=== PATIENT | female | born 1975 | race African-American/Black ===

== ENCOUNTER 2020-10-10 02:04 | Emergency (ER) | payer MEDICAID, OTHER ==
[~2020-10-10] VITALS: Ht 167.6 cm; Wt 79.0 kg
[2020-10-10] MEDS ORDERED: HALOPERIDOL LACTATE 5MG/ML VIAL IM STA (02:33)
[2020-10-10] MEDS ORDERED: LORAZEPAM 2MG/ML CPJ IV ONE (02:45)
[2020-10-10 06:15] VITALS: BP 109/64
[2020-10-10 06:39] LABS: BASOPHILS % 0.4 % (0.0-2.0); HEMATOCRIT. 37.9 % (36.0-48.0); HEMOGLOBIN. 12.4 g/dL (12.0-16.0); MEAN CORPUSCULAR VOLUME 88.6 fL (81.0-99.0); MEAN PLATELET VOLUME 8.5 fl (7.4-10.4); MONOCYTES % 8.4 % (2.0-8.0); NEUTROPHILS % 70.2 % (40.0-76.0); PLATELET 230 x1000/uL (130-400); RED BLOOD CELL COUNT 4.28 mill/uL (4.2-5.4); RED CELL DISTRIBUTION WIDTH 15.2 % (11.6-14.6)
[2020-10-10 06:46] LABS: CHLORIDE 108 mEq/L (98-107)
[2020-10-10 06:49] LABS: ETHANOL BLOOD < 10 mg/dL
== END 2020-10-10 08:08 | disposition home or self-care (01) ==
LOC: ER 02:04
DX: F23 Brief psychotic disorder (principal)
CPT/HCPCS: 36415; 80053; 80307; 80320; 80329; 85025; 96372; 96374; 99285; J1630; J2060; G0480